=== PATIENT | male | born 1965 | race African-American/Black ===

== ENCOUNTER → 2023-08-09 13:27 | Outpatient (BNVA) | payer OTHER, SELFPAY | PROVIDERS: Visit Provider Physician Assistant Medical | DX: S83.91XA Sprain of unspecified site of right knee, initial encounter (principal); S83.92XA Sprain of unspecified site of left knee, initial encounter; S63.602A Unspecified sprain of left thumb, initial encounter; W18.30XA Fall on same level, unspecified, initial encounter | CPT/HCPCS: 73564; 99203 ==

== ENCOUNTER → 2023-08-17 09:07 | Outpatient (BNVA) | payer OTHER, SELFPAY | PROVIDERS: Visit Provider Physician Assistant Medical | DX: S83.91XA Sprain of unspecified site of right knee, initial encounter (principal); S83.92XA Sprain of unspecified site of left knee, initial encounter; S63.602A Unspecified sprain of left thumb, initial encounter; W18.30XA Fall on same level, unspecified, initial encounter | CPT/HCPCS: 99213 ==

== ENCOUNTER 2023-08-25 14:42 | Outpatient (REF) | payer OTHER, SELFPAY ==
--- NOTE | ~2023-08-25 | MR_ITS ---
EXAMINATION: MR KNEE WITHOUT CONTRAST, LEFT CLINICAL INFORMATION: Pain, instability. COMPARISON: None available. TECHNIQUE: MRI of the knee without contrast was performed using routine sequences on a high-field scanner. FINDINGS: MENISCI: MEDIAL MENISCUS: Intact. LATERAL MENISCUS: Intact. LIGAMENTS: CRUCIATE: T2 signal in the mid and distal ACL, could reflect mucoid degeneration or sprain. Intact PCL. COLLATERAL: MCL edema compatible with grade 2 sprain/partial tear. Intact LCL complex. Popliteus muscle and tendon are intact. EXTENSOR MECHANISM: Intact. ARTICULAR CARTILAGE/BONE: PATELLOFEMORAL COMPARTMENT: Small marginal osteophytes. Scattered foci of cartilage fissuring in the medial patellar facet, central patella. Trochlear foci of cartilage heterogeneity, with focal subchondral cyst. MEDIAL COMPARTMENT: Edema from bone contusion in the anterior/medial aspect of the medial tibial plateau. Subchondral edema in the posteromedial aspect medial femoral condyle. LATERAL COMPARTMENT: Prominent bone contusion in the posterior aspect lateral tibial plateau, with probable nondisplaced subchondral fracture/trabecular microfracture. Subchondral edema in the posterior non-weightbearing femoral condyle, overlying cartilage heterogeneity. JOINT FLUID AND BURSAE: Small effusion. Trace Sprague's cyst. 7 mm loose body in the posterior joint space. MR/MR knee LT wo con IMPRESSION: 1. ACL findings could represent mucoid degeneration or sprain. 2. Grade 2 sprain/partial tear MCL. 3. Bone contusion in the medial tibial plateau and the medial femoral condyle. 4. Prominent bone contusion in the posterior aspect of the lateral tibial plateau, with probable nondisplaced subchondral fracture/trabecular microfracture. Mild lateral compartment arthritis. 5. Small effusion. Trace Sprague's cyst. 7 mm loose body.
== END 2023-08-25 14:43 | disposition home or self-care (01) ==
LOC: HO.MRI 14:42
PROVIDERS: Visit Provider Internal Medicine
DX: M25.362 Other instability, left knee (principal); M25.562 Pain in left knee
CPT/HCPCS: 73721

== ENCOUNTER → 2023-08-31 10:03 | Outpatient (BNVA) | payer OTHER, SELFPAY | PROVIDERS: PCP Internal Medicine; Visit Provider Physician Assistant Medical | DX: S80.02XA Contusion of left knee, initial encounter (principal); S80.01XA Contusion of right knee, initial encounter; W18.30XA Fall on same level, unspecified, initial encounter | CPT/HCPCS: 99213 ==

== ENCOUNTER 2023-09-16 09:10 | Outpatient (AMB) | payer OTHER, SELFPAY ==
--- NOTE | 2023-09-16 09:11 | A.OFFVIS_ITS ---
Intake Vital Signs 09/16/23 09:17 Height 5 ft 7 in Weight 185 lb BMI 29.0 Intake Visit Reasons: FC-fall- FEM medal subchondral fx Intake Note: Saturnino is a 58 year old male who presents today for a evaluation for his left knee fx, DOI 08/623. Patient reports he slipped on the wet floor at work which made him fall on to his knees. He states that his pain is more focused on the medial aspect of the left knee. He is also having complaints of the right knee. Pain is slowly improving with Core PT. Allergies No Known Allergies Allergy (Verified 09/16/23 09:16) HPI FC-fall- FEM medal subchondral fx HPI Details 58-year-old male who presents in the off ice today, as a new patient, for an evaluation of left knee pain. The patient reports he slipped on the wet floor at work, which caused him to fall on his knees n 08/07/23. He reports the pain is located on the medial aspect of the left knee. He states the pain is slowly improving with CORE physical therapy. Patient is reports pain in the right knee. 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 No ecchymosis, erythema, or edema. Tenderness to palpation over the medial joint line. No tenderness to palpation over the lateral joint line. Full ROM with flexion and extension. Negative Valdo's. Negative Anterior Drawer. NVI. Assessment & Plan Assessment & Plan (1) Contusion of left tibia: Code(s): S80.12XA - Contusion of left lower leg, initial encounter (2) Sprain of anterior cruciate ligament of left knee: Code(s): S83.512A - Sprain of anterior cruciate ligament of left knee, initial encounter (3) MCL sprain of left knee: Code(s): S83.412A - Sprain of medial collateral ligament of left knee, initial encounter (4) Osteoarthritis of left knee: Code(s): M17.12 - Unilateral primary osteoarthritis, left knee (5) Loose body in knee, left knee: Code(s): M23.42 - Loose body in knee, left knee Plan Mr. Pineda is a 58-year-old male who presents in the office today, as a new patient, for an evaluation of left knee pain. The patient reports he slipped on the wet floor at work, which caused him to fall on his knees. He reports the pain is located on the medial aspect of the left knee. He states the pain is slowly improving with CORE physical therapy. The patient will continue to work with physical therapy. He has been weight bearing as tolerated with minimal discomfort. He may continue with this status. I offered a brace which he declined at this time. He will remain out of work until follow up. Follow up will be in 6 weeks, or sooner if needed. X-rays of the left knee, obtained on 08/19/2023, revealed no acute fracture or dislocation. MRI of the left knee, obtained on , revealed: 1. ACL findings could represent mucoid degeneration or sprain. 2. Grade 2 sprain/partial tear MCL. 3. Bone contusion in the medial tibial plateau and the medial femoral condyle. 4. Prominent bone contusion in the posterior aspect of the lateral tibial plateau, with probable nondisplaced subchondral fracture/trabecular microfracture. Mild lateral compartment arthritis. 5. Small effusion. Trace Sprague's cyst. 7 mm loose body. Patient Instructions: Scribed by Neena Castellanos manager medical device, for Shayy Cabral PA-C on 09/16/2023 at 9:15 am, EST. Coding Level of Care Code New Pt Level 4 (38570) Diagnoses Contusion of left tibia S80.12XA Sprain of anterior cruciate ligament of left knee S83.512A MCL sprain of left knee S83.412A Osteoarthritis of left knee M17.12 Loose body in knee, left knee M23.42
[2023-09-16 09:17] VITALS: BMI 29.0
== END 2023-09-16 09:46 | disposition home or self-care (01) ==
PROVIDERS: PCP Internal Medicine; Visit Provider Physician Assistant
DX: S80.12XA Contusion of left lower leg, initial encounter (principal); S83.512A Sprain of anterior cruciate ligament of left knee, initial encounter; S83.412A Sprain of medial collateral ligament of left knee, initial encounter; M17.12 Unilateral primary osteoarthritis, left knee; M23.42 Loose body in knee, left knee
CPT/HCPCS: 99204

== ENCOUNTER → 2023-09-16 09:10 | Outpatient (BNVA) | payer OTHER, SELFPAY | PROVIDERS: PCP Internal Medicine; Visit Provider Physician Assistant | DX: S80.12XA Contusion of left lower leg, initial encounter (principal); S83.512A Sprain of anterior cruciate ligament of left knee, initial encounter; S83.412A Sprain of medial collateral ligament of left knee, initial encounter; M17.12 Unilateral primary osteoarthritis, left knee; M23.42 Loose body in knee, left knee | CPT/HCPCS: 99202 ==

== ENCOUNTER 2023-10-14 08:00 | Outpatient (RCR) | payer OTHER, SELFPAY ==
--- NOTE | 2023-08-18 14:17 | MHC.PT.EP ---
[facility] [place] Office [place] [facility] [place] [facility] [address] Son[address] Espinoza [address] [phone] F: [phone] F: [phone] F: [phone] F: [phone] Physical Therapy Plan of Care Date of Evaluation: 08/18/23 Date of Surgery: Diagnosis: b/l MCL strain Assessment: Patient is a 58 year old R handed male who presents with s/s consistent with b/l MCL strain, knee pain. He works with daily job demands including director advanced, occasionally breaking up fights. Patient past medical history includes HTN. Current impairments include pain, flexibility, ROM, strength, activity tolerance and functional mobility. Functional limitations include decreased ability to walk, stand, squat, exercise, negotiate stairs and run. Patient is motivated with good rehab potential. Skilled PT will address impairments and functional limitations in order to achieve goals. Frequency and Duration: The patient will be seen 2x/week for 5 weeks Short Term Goals: I with HEP - 2 weeks AROM full and pain free - 3 weeks pain free stair negotiation - 3 weeks restore normal gait mechanics - 3 weeks Shelter Goals: LEFS 54/80 - 5 weeks Restore PLOF pain free - 5 weeks Treatment Plan: Modalities to reduce pain, spasms and effusion. Manual therapy to restore motion and function. Therapeutic exercise to improve strength and flexibility. Neuromuscular re-education for posture and balance. Therapeutic activities to return to functional activities of daily living. Electronically signed by: Jem Hays, PT Please sign and return to therapist. Thank you for your referral.
--- NOTE | 2024-04-11 10:56 | MHC.PT.DC ---
[facility] [place] Office [address] [place] Office [address] Goldie Espinoza [address] [phone] F: [phone] F: [phone] F: [phone] F: [phone] Physical Therapy Discharge Report Diagnosis: b/l MCL strain Date of Surgery: Date of Evaluation: 08/18/23 Date of Discharge: 12/13/23 Treatments to Date: 16 Cancellations to Date: No Shows to Date: Discharge Status: Independent with HEP Discharge Summary: 10/14/23: Pt is I with [facility]P and all goals are met. He has been compliant and motivated throughout. He is appropriate to d/c to HEP at this time. 10/12/23: on pace to d/c to [facility] [place]. safe to return to work. 10/08/23: pt continues to perform well in PT. no adverse reactions. 10/06/23: pt progressing well with skilled PT. still with minor stiffness/soreness at times but progressing well with higher level activities. 09/30/2023: Pt tardy x 10 min. Accommodated with remaining time left in session. He does not complain of pain during the session. Cues to avoid dragging his foot with the band walks. Encouraged continuing with HEP at home as tolerated. 09/28/2023: Pt tardy x 10 min. Accommodated with remaining time left in session. He stated thinks he is over doing it a bit so I encouraged him to back off a little to avoid any adverse affects outside of PT. We continued with exercises as above and he did not report any pain during session but makes note of fatigue as he progresses through. 09/23/23: 10 min late and accommodated per the usual. I continue to educate him that stiffness may linger for a long period of time and functionally he is doing very well. min increased in any s/s with challenging program. 09/15/23: pt progressing well with skilled PT. no adverse reactions. notes only residual s/s is stiffness. ortho tomorrow. he continues to have impairments including pain, gait mechanics, stair mechanics, and strength. Functional limitations include decreased ability to transfer, walking longer durations, exercise and negotiate stairs. He is progressing well. He is motivated and compliant. We will continue to pursue goals in order to ensure safe return to PLOF and work. We will continue skilled PT 2x/week for 4 more weeks. 09/13/23: pt continues to perform and progress well. min pain, discomfort today. we will continue through follow up with WC. 09/09/23: pt showed up late and was accommodated. we continued with program with no adverse reactions. 09/07/23: pt continues to be high functioning with only subjective soreness noted. continue to progress as tolerated. ortho on 09/16/23. 09/02/23: pt performs well. he is pursuing ortho appt as I agree with given his MRI results. continue to progress as tolerated. 08/31/23: pt progressing well but MRI reviewed with significant pathology. to return to work connection today and we will discuss and discern next best steps. 08/26/23: pt continues to progress well with skilled PT. gait mechanics improving. less pain. MRI was done yesterday. 08/24/23: pt progressing well with skilled PT. added hops with no adverse reactions. we will continue to progress with skilled PT. follow up next Wednesday with . 08/20/23: pt progressed with strength and functional activities. min medial knee pain b/l > on L. educated in mechanics and adding lateral walking to HEP. we will attempt jump rope like activity next week as this is patient's preferred form of activity. Patient is a 58 year old R handed male who presents with s/s consistent with b/l MCL strain, knee pain. 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 Patient past medical history includes HTN. Current impairments include pain, flexibility, ROM, strength, activity tolerance and functional mobility. Functional limitations include decreased ability to walk, stand, squat, exercise, negotiate stairs and run. Patient is motivated with good rehab potential. Skilled PT will address impairments and functional limitations in order to achieve goals. Electronically signed by: Jem Hays, PT Please sign and return to therapist. Thank you for your referral.
== END 2024-04-11 10:57 | disposition home or self-care (01) ==
LOC: HO.PTCHIC 08:00
PROVIDERS: PCP Internal Medicine; Visit Provider Physician Assistant Medical
DX: M25.561 Pain in right knee (principal); M25.562 Pain in left knee
CPT/HCPCS: 97110; 97112; 97161

== ENCOUNTER 2023-10-19 12:24 | Outpatient (AMB) | payer OTHER, SELFPAY ==
--- NOTE | 2023-10-19 12:28 | MHC.OFFVIS ---
Intake Vital Signs 10/19/23 12:39 Height 5 ft 7 in Weight 185 lb BMI 29.0 Intake Visit Reasons: ov- left knee OA, DOI 08/07/23 Intake Note: Saturnino is a 58 year old male who presents today for a follow up for his left knee OA, DOI 08/07/23. Patient reports he is doing a bit better and showing improvements. He states that PT is helping him in his ROM. Allergies No Known Allergies Allergy (Verified 10/19/23 12:39) HPI ov- left knee OA, DOI 08/07/23 HPI Details 58-year-old male who presents in the office today for a follow up of left knee pain. I last saw the patient in the office on 09/16/2023 at which time he was referred to physical therapy and instructed to weight bear as tolerated. He was offered a brace to which he declined. He was given an out of work until follow up note. While in the office today the patient reports he is doing a bit better. He confirms participating in physical therapy and states it is helping his ROM. 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 No ecchymosis, erythema, or edema. Tenderness to palpation over the medial joint line. No tenderness to palpation over the lateral joint line. Full ROM with flexion and extension. Negative Valdo's. Negative Anterior Drawer. NVI. Assessment & Plan Assessment & Plan (1) Contusion of left tibia: Code(s): S80.12XA - Contusion of left lower leg, initial encounter (2) Sprain of anterior cruciate ligament of left knee: Code(s): S83.512A - Sprain of anterior cruciate ligament of left knee, initial encounter (3) MCL sprain of left knee: Code(s): S83.412A - Sprain of medial collateral ligament of left knee, initial encounter (4) Osteoarthritis of left knee: Code(s): M17.12 - Unilateral primary osteoarthritis, left knee (5) Loose body in knee, left knee: Code(s): M23.42 - Loose body in knee, left knee Plan Mr. Pineda is a 58-year-old male who presents in the office today for a follow up of left knee pain. I last saw the patient in the office on 09/16/2023 at which time he was referred to physical therapy and instructed to weight bear as tolerated. He was offered a brace to which he declined. He was given an out of work until follow up note. While in the office today the patient reports he is doing a bit better. He confirms participating in physical therapy and states it is helping his ROM. Patient is making progress with physical therapy but is still having some pain with weight bearing. She can continue to weight bear as tolerated. He will continue to work with physical therapy. He will remain out of work until his follow up. Follow up in 4 weeks, or sooner if needed. X-rays of the left knee which were obtained while in the office today and were reviewed by me, Shayy Cabral PA-C, were unremarkable. Orders: Orders XR knee standing BI Today M25.569 - Pain in unspecified knee Patient Instructions: Scribed by Neena Castellanos medical affairs leader, for Shayy Cabral PA-C on 10/19/2023 at 12:27 pm, EST. Coding Level of Care Code Est Pt Level 3 (28973) Diagnoses Contusion of left tibia S80.12XA Sprain of anterior cruciate ligament of left knee S83.512A MCL sprain of left knee S83.412A Osteoarthritis of left knee M17.12 Loose body in knee, left knee M23.42
[2023-10-19 12:39] VITALS: BMI 29.0
== END 2023-10-19 13:03 | disposition home or self-care (01) ==
PROVIDERS: PCP Internal Medicine; Visit Provider Physician Assistant
DX: S80.12XA Contusion of left lower leg, initial encounter (principal); S83.512A Sprain of anterior cruciate ligament of left knee, initial encounter; S83.412A Sprain of medial collateral ligament of left knee, initial encounter; M17.12 Unilateral primary osteoarthritis, left knee; M23.42 Loose body in knee, left knee
CPT/HCPCS: 99213

== ENCOUNTER 2023-10-19 14:55 | Outpatient (REF) | payer OTHER, SELFPAY ==
--- NOTE | ~2023-10-19 | XR_ITS ---
EXAMINATION: XR KNEE, LEFT CLINICAL INFORMATION: Left knee pain COMPARISON: Left knee x-ray on 08/09/2023 TECHNIQUE: Frontal upright x-ray of bilateral knees, lateral and sunrise views of the left knee. FINDINGS: BONES: Bony structures are intact. There is no focal bone destruction or periosteal reaction seen. JOINTS: Alignment of joints is normal. There is persistent mild decrease in medial compartment left knee joint space. Tiny osteophyte is seen at superior border of the left patella. SOFT TISSUE: Left suprapatellar fat pad shows increase in density. No radiopaque foreign body or abnormal air collection is seen. XR/XR knee LT 3V IMPRESSION: 1. Unchanged mild medial compartment left tibiofemoral joint and left patellofemoral joint osteoarthritis. 2. Unchanged mild left knee effusion. 3. No fracture or dislocation or signs of osteomyelitis are found.
== END 2023-10-19 14:56 | disposition home or self-care (01) ==
LOC: HO.HOSX 14:55
PROVIDERS: Visit Provider Physician Assistant
DX: S80.12XA Contusion of left lower leg, initial encounter (principal); S83.512A Sprain of anterior cruciate ligament of left knee, initial encounter; S83.412A Sprain of medial collateral ligament of left knee, initial encounter; M17.12 Unilateral primary osteoarthritis, left knee; M23.42 Loose body in knee, left knee
CPT/HCPCS: 73562; 99212

== ENCOUNTER 2023-11-16 13:22 | Outpatient (AMB) | payer OTHER, SELFPAY ==
--- NOTE | 2023-11-16 13:43 | MHC.OFFVIS ---
Intake Vital Signs 11/16/23 13:49 Height 5 ft 7 in Weight 185 lb BMI 29.0 Intake Visit Reasons: ov- left knee OA, DOI 08/07/23 Intake Note: Saturnino is a 58 year old male who presents today for a follow up for his left knee OA, DOI 08/07/23. Patient reports he is doing well. Patient reports he is showing improvements when working with P.T. He states that physical therapy gave him at home exercises. Allergies No Known Allergies Allergy (Verified 11/16/23 13:49) HPI ov- left knee OA, DOI 08/07/23 HPI Details 58-year-old male who presents in the office today for a follow up of left knee pain. I last saw the patient in the office on 10/19/2023 when I was encouraged to continue to work with PT and to weight bear as tolerated. He was also instructed to remain out of work until follow up. While in the office the patient reports he is doing well. He confirms PT has given him an at home exercise program to work on. 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 No ecchymosis, erythema, or edema. Tenderness to palpation over the medial joint line. No tenderness to palpation over the lateral joint line. Full ROM with flexion and extension. Negative Valdo's. Negative Anterior Drawer. NVI. Assessment & Plan Assessment & Plan (1) Contusion of left tibia: Code(s): S80.12XA - Contusion of left lower leg, initial encounter (2) Sprain of anterior cruciate ligament of left knee: Code(s): S83.512A - Sprain of anterior cruciate ligament of left knee, initial encounter (3) MCL sprain of left knee: Code(s): S83.412A - Sprain of medial collateral ligament of left knee, initial encounter (4) Osteoarthritis of left knee: Code(s): M17.12 - Unilateral primary osteoarthritis, left knee (5) Loose body in knee, left knee: Code(s): M23.42 - Loose body in knee, left knee Plan Mr. Pineda is a 58-year-old male who presents in the office today for a follow up of left knee pain. I last saw the patient in the office on 10/19/2023 when I was encouraged to continue to work with PT and to weight bear as tolerated. He was also instructed to remain out of work until follow up. While in the office the patient reports he is doing well. He confirms PT has given him an at home exercise program to work on. Patient has completed all PT with instructions of a home exercise program, which he will continue to work on. He will return to work full-time, regular duty on 11/23/2023 with no restrictions. Follow up will be PRN, or sooner if needed. X-rays of the left knee which were obtained while in the office today and were reviewed by me, Shayy Cabral PA-C, revealed routine healing. Orders: Orders XR knee LT 3V Today M25.569 - Pain in unspecified knee Patient Instructions: Scribed by Neena Castellanos, biomedical instrument technician, for Shayy Cabral PA-C on 11/16/2023 at 1:29 pm, EST. Coding Level of Care Code Est Pt Level 3 (94082) Diagnoses Contusion of left tibia S80.12XA Sprain of anterior cruciate ligament of left knee S83.512A MCL sprain of left knee S83.412A Osteoarthritis of left knee M17.12 Loose body in knee, left knee M23.42
[2023-11-16 13:49] VITALS: BMI 29.0
== END 2023-11-16 14:46 | disposition home or self-care (01) ==
PROVIDERS: PCP Internal Medicine; Visit Provider Physician Assistant
DX: S80.12XA Contusion of left lower leg, initial encounter (principal); S83.512A Sprain of anterior cruciate ligament of left knee, initial encounter; S83.412A Sprain of medial collateral ligament of left knee, initial encounter; M17.12 Unilateral primary osteoarthritis, left knee; M23.42 Loose body in knee, left knee
CPT/HCPCS: 99213

== ENCOUNTER 2023-11-16 14:56 | Outpatient (REF) | payer OTHER, SELFPAY ==
--- NOTE | ~2023-11-16 | XR_ITS ---
EXAMINATION: XR KNEE, LEFT CLINICAL INFORMATION: Pain in unspecified knee. COMPARISON: 10/19/2023. TECHNIQUE: AP standing view of bilateral knees as well as sunrise and lateral views of the left knee. FINDINGS: Left Knee: Mild narrowing of the medial compartment. Moderate joint effusion. Tiny posterior patellar osteophytes. AP standing view of the right knee: Mild narrowing of the medial compartment. XR/XR knee LT 3V IMPRESSION: Mild degenerative changes left knee.
== END 2023-11-16 14:57 | disposition home or self-care (01) ==
LOC: HO.HOSX 14:56
PROVIDERS: Visit Provider Physician Assistant
DX: S83.512A Sprain of anterior cruciate ligament of left knee, initial encounter (principal); S80.812A Abrasion, left lower leg, initial encounter; M17.12 Unilateral primary osteoarthritis, left knee
CPT/HCPCS: 73562; 99212

== ENCOUNTER 2024-01-22 09:43 | Outpatient (AMB) | payer OTHER, SELFPAY ==
[2024-01-22 09:45] VITALS: BP 118/80; PULSE 51; TEMP 36.6; O2SAT 97; BMI 27.9
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
== END 2024-01-22 10:33 | disposition home or self-care (01) ==
PROVIDERS: PCP Internal Medicine; Visit Provider Physician Assistant
DX: S83.412A Sprain of medial collateral ligament of left knee, initial encounter (principal); Z04.2 Encounter for examination and observation following work accident
CPT/HCPCS: 99213

== ENCOUNTER 2024-02-29 09:49 | Outpatient (AMB) | payer OTHER, SELFPAY ==
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
== END 2024-02-29 10:21 | disposition home or self-care (01) ==
PROVIDERS: PCP Internal Medicine; Visit Provider Physician Assistant
DX: S80.12XA Contusion of left lower leg, initial encounter (principal)
CPT/HCPCS: 99213

== ENCOUNTER → 2024-02-29 09:49 | Outpatient (BNVA) | payer OTHER, SELFPAY | PROVIDERS: PCP Internal Medicine; Visit Provider Physician Assistant | DX: S80.12XA Contusion of left lower leg, initial encounter (principal) | CPT/HCPCS: 99212 ==